=== PATIENT | female | born 1930 | race Caucasian/White ===

== ENCOUNTER 2019-03-31 15:06 | Inpatient (IN) | payer OTHER ==
--- NOTE | 2019-03-31 15:40 | PDOC ---
History of Present Illness - General Stated Complaint: ATRIAL FIBRILLATION Time Seen by Provider: 03/31/19 15:36 History Source: [facility] Records Exam Limitations: Dementia - History of Present Illness Initial Comments: 03/31/19 15:58 88y F with PMH of Afib (Eliquis, diltiazem), HF, Dementia, UGIB presenting to ER from [facility] for Afib RvR. Per staff, pt has been having trouble with rate control since early this week. Pt was taking metoprolol 100mg (1.5 tablet BID) but was switched to diltiazem 30mg yesterday. She was supposed to go on 30mg BID but she has not gotten the script yet. She was given a stat dose of metoprolol 50mg po today prior to arrival when her HR was in the 130s. Unable to obtain information from patient. Full Code PMD: Laith PMH: see hpi PSH: colostomy Meds: cardizem, digoxin, apixaban Allergies: PCN Past History - Past Medical History Allergies/Adverse Reactions: Allergies Allergy/AdvReac Type Severity Reaction Status Date / Time Penicillins Allergy Verified 09/26/13 12:15 Home Medications: Ambulatory Orders Acetaminophen [Tylenol] 650 mg PO Q6H PRN 09/26/13 Docusate Sodium [Colace -] 100 mg PO BID 09/26/13 Amlodipine Besylate 1 tab PO DAILY 03/31/19 Apixaban [Eliquis] 2.5 mg PO BID 03/31/19 Metoprolol Tartrate 1.5 tab PO DAILY 03/31/19 Pantoprazole Sodium 40 mg PO DAILY 03/31/19 Polyethylene Glycol 3350 [Miralax 119 gm Btl -] 17 ml PO DAILY PRN 03/31/19 Ropinirole HCl 1 tab PO Q8H 03/31/19 Dementia: Yes GI Disorders: Yes (DIVERTICULITIS) HTN: Yes - Surgical History Abdominal Surgery: Yes (COLECTOMY) - Psycho Social/Smoking Cessation Hx Smoking History: Never smoked Review of Systems - Review of Systems Able to Perform ROS?: No (dementia) *Physical Exam - Physical Exam General Appearance: Yes: Nourished, Appropriately Dressed HEENT: positive: EOMI, RASHARD, Other (dry membranes. ) Neck: positive: Trachea midline, Supple. negative: Lymphadenopathy (R), Lymphadenopathy (L) Respiratory/Chest: positive: Decreased Breath Sounds. negative: Chest Tender, Accessory Muscle Use, Labored Respiration Cardiovascular: positive: S1, S2, Irregularly Irregular. negative: Edema, JVD, Murmur Vascular Pulses: Dorsalis-Pedis (R): 2+, Doralis-Pedis (L): 2+ Gastrointestinal/Abdominal: positive: Normal Bowel Sounds, Soft, Other ( colostomy). negative: Tender Extremity: positive: Normal Capillary Refill, Pelvis Stable. negative: Swelling , Calf Tenderness Integumentary: positive: Normal Color, Dry, Warm Neurologic: positive: Alert, Normal Response, Motor Strength 5/5, Other. negative: Fully Oriented (aox1) ED Treatment Course - LABORATORY CBC & Chemistry Diagram: 03/31/19 16:16 03/31/19 16:16 Medical Decision Making - Medical Decision Making 03/31/19 17:58 88y F with PMH of afib, heart failure presenting to ED with afib rvr. rectal 99, tachycardic, saturating well on RA. afib rvr-could be due to infectoin, dehydration, medication noncompliance. -cbc, cmp, trop, cxr, ekg, ua, ucx. -cardizem 15mg after cardizem, hr down to 90s but went back up to 110s-120s. labs show leukocytosis 15. all other labs wnl. ua negative for infection but cloudy. upon chart review, pt was being treated with rocephin [facility] for leukocytosis 23. per inpatient team, pt does not require abx (Was going to get rocephin). recommended digoxin 0.125 ivpush. admitted to tele. Discharge - Discharge Information Problems reviewed: Yes Clinical Impression/Diagnosis: Atrial fibrillation with RVR Leukocytosis Qualifiers: Leukocytosis type: unspecified Qualified Code(s): D72.829 - Elevated white blood cell count, unspecified Condition: Stable - Admission Yes - Follow up/Referral - Patient Discharge Instructions - Post Discharge Activity
[2019-03-31] MEDS ORDERED: dilTIAZem HCL 50 MG/10 ML - 10 ML VIAL IVPUSH ONE (16:55)
--- NOTE | 2019-03-31 16:58 | PDOC ---
Documentation entered by Venus Moncada SCRIBE, acting as scribe for Miri Rodriguez MD. Miri Rodriguez MD: This documentation has been prepared by the Antwan manzanares Adrianna, SCRIBE, under my direction and personally reviewed by me in its entirety. I confirm that the documentation accurately reflects all work, treatment, procedures, and medical decision making performed by me. Attending Attestation - Resident Resident Name: Alice Moctezuma - ED Attending Attestation I have performed the following: I have examined & evaluated the patient, The case was reviewed & discussed with the resident, I agree w/resident's findings & plan, Exceptions are as noted - HPI HPI: 03/31/19 16:55 h/o afib, dementia, CHF from [facility] for elevated heart rate . they were recently metoprolol planning to transition to cardizem, they didn't have the meds today, noted the heart rate was 120 - 140's/ received 50 po cardizem today. no f/c pt is very poor historian. pt history provided by EMS report and nursing facility. pt currently denies any discomfort or pain. - Physicial Exam PE: 03/31/19 16:56 awake alert lungs clear bilat heart irreg tachycardia. abd soft nt nd ext wwp. no edema. no calf tenderness. skin warm and dry. - Medical Decision Making 03/31/19 16:57 88 yo F h/o afib CHF dementia here with afib with RVR differential: uti, electrolyte abnormality, dehydration, inefction such and pna. plan cxr ua labs ekg . will given diltiazem 15 mg ivp for afib with rVR/ 03/31/19 18:41 7 wbc in urine and cloudy. will cover for uti, elevated WBC .
[2019-03-31 17:11] LABS: BASO % 1.1 % (0-2.0); EOS % 1.4 % (0-4.5); HEMATOCRIT 42.6 % (32.4-45.2); HEMOGLOBIN 14.5 GM/dL (10.7-15.3); LYMPH % 17.1 % (8-40); MCHC 33.9 g/dl (32.0-36.0); MEAN CELL VOLUME 91.4 fl (80-96); MEAN PLT VOLUME 9.8 fl (7.5-11.1); MONO % 6.9 % (3.8-10.2); NEUT % 73.5 % (42.8-82.8); PLATELET COUNT 344 K/MM3 (134-434); RBC 4.66 M/mm3 (3.60-5.2)
[2019-03-31 17:22] LABS: INR 1.18 (0.83-1.09); PROTHROMBIN TIME (PATIENT) 13.9 SEC (9.7-13.0)
[2019-03-31 17:41] LABS: EPI CELLS 9.8 /HPF (0-5/HPF); HYALINE CASTS 23 /lpf (0-8); PH,URINE 5.5 (5.0-8.0); URINE APPEARANCE CLOUDY; URINE BACTERIA 8.2 /hpf (NEGATIVE); URINE BILIRUBIN NEGATIVE (NEGATIVE); URINE COLOR YELLOW; URINE GLUCOSE (UA) NEGATIVE (NEGATIVE); URINE KETONE NEGATIVE (NEGATIVE); URINE LEUK ESTERASE NEGATIVE (NEGATIVE); URINE NITRITE NEGATIVE (NEGATIVE); URINE PROTEIN 2+ (NEGATIVE); URINE RBC 3 /hpf (0-4); URINE UROBILINOGEN 0.2 mg/dL (0.2-1.0); URINE WBC 7 /hpf (0-5)
[2019-03-31 17:47] LABS: ALBUMIN 3.4 g/dl (3.4-5.0); BILIRUBIN,TOTAL 0.4 mg/dL (0.2-1); BLOOD UREA NITROGEN 33.7 mg/dL (7-18); CALCIUM 9.5 mg/dL (8.5-10.1); CREATININE 0.8 mg/dL (0.55-1.3); POTASSIUM 5.3 mmol/L (3.5-5.1); TOT PROT 7.8 g/dl (6.4-8.2)
[2019-03-31] MEDS ORDERED: dilTIAZem HCL 125 MG/25 ML - 25 ML VIAL ONE (17:58)
[2019-03-31 17:59] LABS: MAGNESIUM 2.5 mg/dL (1.8-2.4)
[2019-03-31] MEDS ORDERED: SODIUM CHLORIDE 500 ML IV STA (18:42)
[2019-03-31] MEDS ORDERED: DIGOXIN 0.5 MG/2 ML AMPUL IVPUSH ONE (18:57)
[2019-03-31] MEDS ORDERED: DIGOXIN 0.5 MG/2 ML AMPUL ONE (19:03)
[2019-03-31] MEDS ORDERED: METOPROLOL TARTRATE 5 MG/5 ML VIAL IVPUSH PRN ×2 (19:15→21:00)
[2019-03-31] MEDS ORDERED: ACETAMINOPHEN 325 MG TABLET (FP) PO PRN (19:34)
[2019-03-31] MEDS ORDERED: POLYETHYLENE GLYCOL 3350 119 GM BTL PO PRN (19:34)
--- NOTE | 2019-03-31 19:45 | PN ---
Teaching Attending Note Name of Resident: Belen Bird ATTENDING PHYSICIAN STATEMENT I saw and evaluated the patient. I reviewed the resident's note and discussed the case with the resident. I agree with the resident's findings and plan as documented. Seen and examined; please see resident note for further historical information. I personally verified all gan historical information and exam findings. Personally interpreted all imaging and diagnostics and reviewed appropriate consults. I reviewed all labs and vital signs as per resident note and EMR as documented. I agree with the above assessment and plan unless supplemented by myself in the following. Patient is an 88-year-old female [facility]. History is limited due to the fact that she is demented. She presents with atrial fibrillation with RVR after being on antibiotics for several days for leukocytosis with no clear documentation, [facility] records show that her white count was up to 21. She has no clear source of infection at this juncture. Her white count was noted to be downtrending today, furthermore the patient is noted to be persistently tachycardic to the 120s. Rhythm strip is appreciated from the [facility] which endorses the indicated diagnosis. The patient is stable in terms of the blood pressure. They are found to have a low digoxin level. The patient was apparently recently transitioned by their primary doctor at the [facility] from metoprolol to diltiazem, I am told they did not receive their initial dose of diltiazem. They have cardiomegaly evident on their chest x-ray with potential bilateral changes consistent with potential rate related CHF versus pneumonia. Imaging is pending to further delineate if there is a source of infection and to describe if this is effusion versus infiltrate. Pending discussion of code status and old records for complete PMH. 10 item review of systems couldn't be completed due to clicical status VS, labs, imaging reviewed NAD, AAO, resting comfortably in bed. RRR s1/2 no mgr Normal muscle tone, moves all 5 extremities with normal apparent strength Neck is supple, trachea midline, no patti LN Lungs CTAB with sym expansion NT ND +BS no patti organomegaly CN2-12 wnl; no FND NC AT EOMI PERRLA Normal mood, appropriate behavior, euthymic affect No skin breakdown or rashes noted Assessment and plan: Loading with dig, consulting ID and cardiology, continue empiric ceftriaxone. Will resume metoprolol (old dose 100 BID) if the dig somewhat helps. If both big and BB don't resolve anticipating may need dilt vs. amio-need to check overall LVEF given cardiomegaly and may want to avoid negative inotropic effect with contractility due to the dilt. Verifying Code Status
[2019-03-31] MEDS ORDERED: METOPROLOL TARTRATE 5 MG/5 ML VIAL ONE (20:23)
[2019-03-31] MEDS: DOCUSATE SODIUM 100 MG CAPSULE (FP) PO SCH (21:45)
[2019-03-31] MEDS: APIXABAN 2.5 MG TABLET PO SCH (21:45)
[2019-03-31] MEDS ORDERED: APIXABAN 2.5 MG TABLET ONE (21:48)
[2019-03-31] MEDS ORDERED: DOCUSATE SODIUM 100 MG CAPSULE (FP) PO ONE (21:49)
[2019-03-31] MEDS ORDERED: METOPROLOL TARTRATE 50 MG TABLET (FP) ONE (21:49)
[2019-03-31] MEDS: rOPINIRole HCL 1 MG TABLET (FP) PO SCH (21:51)
[2019-03-31] MEDS ORDERED: METOPROLOL TARTRATE 50 MG TABLET (FP) PO ONE (22:00)
--- NOTE | 2019-03-31 22:01 | HP ---
CHIEF COMPLAINT:weakness PCP:Dr. Ozuna HISTORY OF PRESENT ILLNESS: Patient is an 88 year old female with past medical history of Afib, CHF, dementia, Parkinson's disease and UGIB, was brought in from [facility] due to elevated heart rate. Patient has history of dementia and is unable to verbalize. History as per ED staff and patient's chart. Patient reportedly was taking Metoprolol tartrate 150mg BID for Afib, but was recently switched to Diltiazem 30mg yesterday. However, patient has not received the prescription yet. Today she was noted to be on Afib with RVR with HR at the 130s. Patient was given Metroprolol 50mg PO once and was sent to the ED. Of note, patient was also started on Ceftriaxone yesterday 03/30, for leukocytosis of 21. No obvious source of infection noted at this time. No fevers or chills. ER course was notable for: (1)IV Diltiazem 15mg once (2)Digoxin <0.3, IV Digoxin 0.125 given (3) Recent Travel:denies PAST MEDICAL HISTORY: Afib CHF dementia Parkinson's disease UGIB PAST SURGICAL HISTORY: Social History: Smoking:denies Alcohol:denies Drugs: denies Allergies Penicillins Allergy (Verified 09/26/13 12:15) HOME MEDICATIONS: Home Medications Medication Instructions Recorded Acetaminophen [Tylenol] 650 mg PO Q6H PRN 09/26/13 Docusate Sodium [Colace -] 100 mg PO BID 09/26/13 Amlodipine Besylate 1 tab PO DAILY 03/31/19 Apixaban [Eliquis] 2.5 mg PO BID 03/31/19 Metoprolol Tartrate 1.5 tab PO DAILY 03/31/19 Pantoprazole Sodium 40 mg PO DAILY 03/31/19 Polyethylene Glycol 3350 [Miralax 17 ml PO DAILY PRN 03/31/19 119 gm Btl -] Ropinirole HCl 1 tab PO Q8H 03/31/19 REVIEW OF SYSTEMS CONSTITUTIONAL: Absent: fever, chills, diaphoresis, generalized weakness, malaise, loss of appetite, weight change HEENT: Absent: rhinorrhea, nasal congestion, throat pain, throat swelling, difficulty swallowing, mouth swelling, ear pain, eye pain, visual changes CARDIOVASCULAR: Absent: chest pain, syncope, palpitations, irregular heart rate, lightheadedness , peripheral edema RESPIRATORY: Absent: cough, shortness of breath, dyspnea with exertion, orthopnea, wheezing, stridor, hemoptysis GASTROINTESTINAL: Absent: abdominal pain, abdominal distension, nausea, vomiting, diarrhea, constipation, melena, hematochezia GENITOURINARY: Absent: dysuria, frequency, urgency, hesitancy, hematuria, flank pain, genital pain MUSCULOSKELETAL: Absent: myalgia, arthralgia, joint swelling, back pain, neck pain SKIN: Absent: rash, itching, pallor HEMATOLOGIC/IMMUNOLOGIC: Absent: easy bleeding, easy bruising, lymphadenopathy, frequent infections ENDOCRINE: Absent: unexplained weight gain, unexplained weight loss, heat intolerance, cold intolerance NEUROLOGIC: Absent: headache, focal weakness or paresthesias, dizziness, unsteady gait, seizure, mental status changes, bladder or bowel incontinence PSYCHIATRIC: Absent: anxiety, depression, suicidal or homicidal ideation, hallucinations. PHYSICAL EXAMINATION Vital Signs - 24 hr 03/31/19 03/31/19 03/31/19 15:10 17:50 18:00 Temperature 98 F Pulse Rate 123 H Pulse Rate [ 122 H 122 H Apical] Respiratory 20 20 20 Rate Blood Pressure 128/91 Blood Pressure 133/106 H 133/66 [Left Arm] O2 Sat by Pulse 100 100 100 Oximetry (%) 03/31/19 03/31/19 03/31/19 20:31 20:38 21:44 Temperature 98.0 F Pulse Rate Pulse Rate [ 125 H 124 H Apical] Respiratory 20 Rate Blood Pressure 126/96 Blood Pressure 128/86 [Left Arm] O2 Sat by Pulse 100 Oximetry (%) GENERAL: Awake, alert, and nonverbal, in no acute distress. HEAD: Normal with no signs of trauma. EYES: PERRLA, EOMI, sclera anicteric, conjunctiva clear. EARS, NOSE, THROAT: Dry mucous membranes. NECK: Normal range of motion, supple. LUNGS: Breath sounds equal, clear to auscultation bilaterally. HEART: Irregularly irregular, normal S1 and S2 without murmur, rub or gallop. ABDOMEN: Soft, nontender, not distended, normoactive bowel sounds. MUSCULOSKELETAL: Normal range of motion at all joints.No CVA tenderness. LOWER EXTREMITIES: 2+ pulses, warm, well-perfused.No peripheral edema. SKIN: Warm, dry, normal turgor. Laboratory Results - last 24 hr 03/31/19 03/31/19 03/31/19 16:16 16:16 16:16 WBC 15.0 H RBC 4.66 Hgb 14.5 Hct 42.6 D MCV 91.4 MCH 31.0 MCHC 33.9 RDW 16.0 H Plt Count 344 MPV 9.8 Absolute Neuts (auto) 11.0 H Neutrophils % 73.5 Lymphocytes % 17.1 D Monocytes % 6.9 Eosinophils % 1.4 D Basophils % 1.1 Nucleated RBC % 0 PT with INR INR Sodium 139 Potassium 5.3 H Chloride 106 Carbon Dioxide 26 Anion Gap 7 L BUN 33.7 H Creatinine 0.8 Est GFR (CKD-EPI)AfAm 77.37 Est GFR (CKD-EPI)NonAf 66.76 Random Glucose 91 Lactic Acid Calcium 9.5 Magnesium 2.5 H Total Bilirubin 0.4 AST 27 ALT 27 Alkaline Phosphatase 121 H Troponin I < 0.02 Total Protein 7.8 Albumin 3.4 Urine Color Urine Appearance Urine pH Ur Specific [place] Urine Protein Urine Glucose (UA) Urine Ketones Urine Blood Urine Nitrite Urine Bilirubin Urine Urobilinogen Ur Leukocyte Esterase Urine WBC (Auto) Urine RBC (Auto) Urine Casts (Auto) U Pathogenic Cast Auto U Epithel Cells (Auto) Urine Bacteria (Auto) Digoxin 03/31/19 03/31/19 03/31/19 16:16 16:16 17:17 WBC RBC Hgb Hct MCV MCH MCHC RDW Plt Count MPV Absolute Neuts (auto) Neutrophils % Lymphocytes % Monocytes % Eosinophils % Basophils % Nucleated RBC % PT with INR 13.90 H INR 1.18 H Sodium Potassium Chloride Carbon Dioxide Anion Gap BUN Creatinine Est GFR (CKD-EPI)AfAm Est GFR (CKD-EPI)NonAf Random Glucose Lactic Acid Calcium Magnesium Total Bilirubin AST ALT Alkaline Phosphatase Troponin I Total Protein Albumin Urine Color Yellow Urine Appearance Cloudy Urine pH 5.5 Ur Specific [place] 1.025 Urine Protein 2+ H Urine Glucose (UA) Negative Urine Ketones Negative Urine Blood Negative Urine Nitrite Negative Urine Bilirubin Negative Urine Urobilinogen 0.2 Ur Leukocyte Esterase Negative Urine WBC (Auto) 7 Urine RBC (Auto) 3 Urine Casts (Auto) 23 U Pathogenic Cast Auto None seen U Epithel Cells (Auto) 9.8 Urine Bacteria (Auto) 8.2 Digoxin < 0.3 L 03/31/19 18:35 WBC RBC Hgb Hct MCV MCH MCHC RDW Plt Count MPV Absolute Neuts (auto) Neutrophils % Lymphocytes % Monocytes % Eosinophils % Basophils % Nucleated RBC % PT with INR INR Sodium Potassium Chloride Carbon Dioxide Anion Gap BUN Creatinine Est GFR (CKD-EPI)AfAm Est GFR (CKD-EPI)NonAf Random Glucose Lactic Acid 2.9 H* Calcium Magnesium Total Bilirubin AST ALT Alkaline Phosphatase Troponin I Total Protein Albumin Urine Color Urine Appearance Urine pH Ur Specific [place] Urine Protein Urine Glucose (UA) Urine Ketones Urine Blood Urine Nitrite Urine Bilirubin Urine Urobilinogen Ur Leukocyte Esterase Urine WBC (Auto) Urine RBC (Auto) Urine Casts (Auto) U Pathogenic Cast Auto U Epithel Cells (Auto) Urine Bacteria (Auto) Digoxin ASSESSMENT/PLAN: Patient is an 88 year old female with past medical history of Afib, CHF, dementia, Parkinson's disease and UGIB, was brought in from [facility] due to elevated heart rate. #Afib with RVR -IV Cardizem once and IV digoxin given at the ED -Will give IV lopressor PRN for tachycardia -Continue home Metoprolol for now -continue Eliquis 2.5mg bid -Tele monitoring -Cardiology consulted. #Leukocytosis -improved WBC from [place] record of 21 to 15 today. -Received ceftriaxone x2 doses -will continue IV ceftriaxone for now -UA, CXR unremarkable -will order chest and abdomen CT for further evaluation and r/o infection #HTN -Continue Amlodipine and Metoprolol #Parkinson's dementia -Continue home Roprinirol TID #FEN -Not on any standing fluids -Electrolytes wnl, routine bmp monitoring -Soft diet, sodium restricted #Prophylaxis -On eliquis 2.5mg BID #Disposition -full code -admit to tele Visit type - Emergency Visit Emergency Visit: Yes ED Registration Date: 03/31/19 Care time: The patient presented to the Emergency Department on the above date and was hospitalized for further evaluation of their emergent condition. - New Patient This patient is new to me today: Yes Date on this admission: 03/31/19 - Critical Care Critical Care patient: No ATTENDING PHYSICIAN STATEMENT I saw and evaluated the patient. I reviewed the resident's note and discussed the case with the resident. I agree with the resident's findings and plan as documented. SUBJECTIVE: OBJECTIVE: ASSESSMENT AND PLAN:
[2019-03-31 23:12] VITALS: BMI 24.1
[2019-04-01] MEDS ORDERED: DEXTROSE 5%-WATER - 50 ML IVPB ONE ×3 (01:21→11:06)
[2019-04-01] MEDS ORDERED: cefTRIAXone SODIUM 1 GM VIAL ONE ×3 (01:21→11:06)
[2019-04-01] MEDS: CEFTRIAXONE 1 GM in DEXTROSE 5%-WATER - 50 ML IVPB SCH ×2 (01:23→10:04)
[2019-04-01] MEDS: rOPINIRole HCL 1 MG TABLET (FP) PO SCH ×3 (06:26→22:28)
[2019-04-01 07:46] LABS: BASO % 1.1 % (0-2.0); EOS % 1.4 % (0-4.5); HEMATOCRIT 42.6 % (32.4-45.2); HEMOGLOBIN 13.8 GM/dL (10.7-15.3); LYMPH % 16.4 % (8-40); MCH 29.8 pg (25.7-33.7); MCHC 32.3 g/dl (32.0-36.0); MEAN PLT VOLUME 9.8 fl (7.5-11.1); MONO % 6.6 % (3.8-10.2); NEUT % 74.5 % (42.8-82.8); PLATELET COUNT 289 K/MM3 (134-434); RBC 4.63 M/mm3 (3.60-5.2); WHITE BLOOD COUNT 11.9 K/mm3 (4.0-10.0)
[2019-04-01 08:31] LABS: ALBUMIN 3.3 g/dl (3.4-5.0); BILIRUBIN,TOTAL 0.8 mg/dL (0.2-1); BLOOD UREA NITROGEN 27.5 mg/dL (7-18); CALCIUM 9.2 mg/dL (8.5-10.1); CREATININE 0.7 mg/dL (0.55-1.3); MAGNESIUM 2.4 mg/dL (1.8-2.4); PHOSPHOROUS 3.6 mg/dL (2.5-4.9); POTASSIUM 4.5 mmol/L (3.5-5.1); TOT PROT 7.1 g/dl (6.4-8.2)
[2019-04-01] MEDS: PANTOPRAZOLE 40 MG TABLET PO SCH (10:05)
[2019-04-01] MEDS: APIXABAN 2.5 MG TABLET PO SCH ×2 (10:05→22:28)
[2019-04-01] MEDS: amLODIPine BESYLATE 10 MG TABLET (FP) PO SCH (10:05)
[2019-04-01] MEDS: DOCUSATE SODIUM 100 MG CAPSULE (FP) PO SCH ×4 (10:05→22:27)
--- NOTE | 2019-04-01 10:13 | PN ---
Progress Note, Physician Chief Complaint: PATIENT WAS SENT BY ME YESTERDAY FROM [facility] FOR RAPID AVR AFIB FAILED ON METOPROLOL AND CARDIZEM PO AT [facility]. HISTORY OF DEMENTIA - Current Medication List Current Medications: Active Medications Acetaminophen (Tylenol -) 650 mg PO Q6H PRN PRN Reason: PAIN Amlodipine Besylate (Norvasc -) 10 mg PO DAILY [facility] Last Admin: 04/01/19 10:05 Dose: 10 mg Apixaban (Eliquis -) 2.5 mg PO BID [facility] Last Admin: 04/01/19 10:05 Dose: 2.5 mg Docusate Sodium (Colace -) 100 mg PO BID [facility] Last Admin: 04/01/19 10:05 Dose: 100 mg Ceftriaxone Sodium 1 gm/ (Dextrose) 50 mls @ 100 mls/hr IVPB DAILY [facility] Last Admin: 04/01/19 10:04 Dose: 100 mls/hr Metoprolol Tartrate (Lopressor Injection -) 2.5 mg IVPUSH Q4H PRN PRN Reason: TACHYCARDIA Last Admin: 03/31/19 20:31 Dose: 2.5 mg Pantoprazole Sodium (Protonix -) 40 mg PO DAILY [facility] Last Admin: 04/01/19 10:05 Dose: 40 mg Polyethylene Glycol (Miralax (For Daily Use) -) 17 gm PO DAILY PRN PRN Reason: CONSTIPATION Ropinirole HCl (Requip -) 1 mg PO TID [facility] Last Admin: 04/01/19 06:26 Dose: 1 mg - Objective Vital Signs: Vital Signs Temperature 98 F 04/01/19 08:30 Pulse Rate 100 H 04/01/19 08:30 Respiratory Rate 20 04/01/19 08:30 Blood Pressure 138/94 04/01/19 08:30 O2 Sat by Pulse Oximetry (%) 100 04/01/19 07:52 Constitutional: Yes: Mild Distress Cardiovascular: Yes: Tachycardia, Pulse Irregular Respiratory: Yes: Diminished Gastrointestinal: Yes: Soft Genitourinary: Yes: Incontinence Musculoskeletal: Yes: Muscle Weakness Edema: No Peripheral Pulses WNL: Yes Integumentary: Yes: Rash, Venous Stasis Changes Wound/Incision: Yes: Dressing Dry and Intact ...Motor Strength: LLE, RLE Psychiatric: Yes: Other Labs: CBC, BMP 04/01/19 06:40 04/01/19 06:40 INR, PTT INR 1.18 (0.83-1.09) H 03/31/19 16:16 Problem List - Problems (1) Atrial fibrillation with RVR Code(s): I48.91 - UNSPECIFIED ATRIAL FIBRILLATION (2) Leukocytosis Code(s): D72.829 - ELEVATED WHITE BLOOD CELL COUNT, UNSPECIFIED Qualifiers: Leukocytosis type: unspecified Qualified Code(s): D72.829 - Elevated white blood cell count, unspecified (3) Urinary tract infection Code(s): N39.0 - URINARY TRACT INFECTION, SITE NOT SPECIFIED Assessment/Plan ON METOPROLOL IV DIGOXIN WAS STARTED AT [facility] YESTERDAY FAILED ON CARDIZEM AND METOPROLOL CARDIOLOGY CONSULT DR KIRKLAND CALLED FOR COVERAGE [facility] ON TELEMETRY IV FLUIDS CHECK TSH/T4 CT CHEST SHOWS ENLARGED THYROID AND STABLE LUNG NODULE PULM EVAL
[2019-04-01 12:35] LABS: N-TERMINAL BNP 1684.6 pg/ml (5-450)
--- NOTE | 2019-04-01 13:08 | CON.CARD ---
Consult Consult Specialty:: cardiology Reason for Consultation:: afb RVR - History of Present Illness History of Present Illness: 88 year old female history of Afib, CHF, dementia, Parkinson's disease and UGIB , was brought in from [facility] due to rapid AF. Reprotedly "failed Metoprolol and cardiazem". Patient reportedly was taking Metoprolol tartrate 150mg BID for Afib, Also started on Ceftriaxone yesterday 03/30, for leukocytosis of 21. No obvious source of infection noted at this time. No fevers or chills. Unable to obtain history form patient due to dementia - Alcohol/Substance Use Hx Alcohol Use: No - Smoking History Smoking history: Never smoked Home Medications - Allergies Allergies/Adverse Reactions: Allergies Allergy/AdvReac Type Severity Reaction Status Date / Time Penicillins Allergy Verified 09/26/13 12:15 - Home Medications Home Medications: Ambulatory Orders Acetaminophen [Tylenol] 650 mg PO Q6H PRN 09/26/13 Docusate Sodium [Colace -] 100 mg PO BID 09/26/13 Amlodipine Besylate 1 tab PO DAILY 03/31/19 Apixaban [Eliquis] 2.5 mg PO BID 03/31/19 Metoprolol Tartrate 1.5 tab PO DAILY 03/31/19 Pantoprazole Sodium 40 mg PO DAILY 03/31/19 Polyethylene Glycol 3350 [Miralax 119 gm Btl -] 17 ml PO DAILY PRN 03/31/19 Ropinirole HCl 1 tab PO Q8H 03/31/19 Family Medical History Family History: Unable to Obtain Review of Systems Unable to obtain ROS, reason: dementia Vital Signs: Vital Signs Temperature 98 F 04/01/19 08:30 Pulse Rate 100 H 04/01/19 08:30 Respiratory Rate 20 04/01/19 08:30 Blood Pressure 138/94 04/01/19 08:30 O2 Sat by Pulse Oximetry (%) 100 04/01/19 07:52 Constitutional: Yes: Well Nourished, No Distress Eyes: Yes: Conjunctiva Clear HENT: Yes: Atraumatic, Normocephalic Neck: Yes: Supple, Trachea Midline Respiratory: Yes: Regular, CTA Bilaterally Gastrointestinal: Yes: Normal Bowel Sounds, Soft Cardiovascular: Yes: Tachycardia, Pulse Irregular JVD: No Carotid Bruit: No PMI: Non-Displaced Heart Sounds: Yes: S1, S2 Edema: No - Other Data Labs, Other Data: CBC, BMP 04/01/19 06:40 04/01/19 06:40 INR, PTT INR 1.18 (0.83-1.09) H 03/31/19 16:16 Troponin, BNP 03/31/19 04/01/19 16:16 00:03 Troponin I < 0.02 < 0.02 B-Natriuretic Peptide 1684.6 H Troponin, BNP 03/31/19 04/01/19 16:16 00:03 Troponin I < 0.02 < 0.02 B-Natriuretic Peptide 1684.6 H Problem List - Problems (1) Atrial fibrillation with RVR Code(s): I48.91 - UNSPECIFIED ATRIAL FIBRILLATION Assessment/Plan 88 F with chronic AF. admitted with tachycardia 1. AF Agree with Metoprolol and digoxin. Continue to titrate dose of metoprolol as HR dictates and may need to add CCB if still poorly controlled. On AC 2. Elevated BNP Likely due to tachycardia. CT chest without pulm edema. Can consider stopping lasix.
--- NOTE | 2019-04-01 14:00 | PN ---
Progress Note (short form) - Note Progress Note: PULMONARY CONSULTATION DICTATED 04/01/19 IMP AFIB WITH RVR DEMENTIA PARKINSONS H/O CHF H/O UGIB RLL NODULE STABLE LEUKOCYTOSIS ELEVATED LACTATE LEVEL PLAN RATE CONTROL PER CARDIOLOGY AC LOPRESSOR MONITOR LYTES,CBC CULTURES ? D/C ABX TREND LACTATE TELEMETRY MONITORING DR MERCADO Problem List - Problems (1) Pulmonary nodule Code(s): R91.1 - SOLITARY PULMONARY NODULE (2) Atrial fibrillation with RVR Code(s): I48.91 - UNSPECIFIED ATRIAL FIBRILLATION (3) Leukocytosis Code(s): D72.829 - ELEVATED WHITE BLOOD CELL COUNT, UNSPECIFIED Qualifiers: Leukocytosis type: unspecified Qualified Code(s): D72.829 - Elevated white blood cell count, unspecified (4) Parkinson disease Code(s): G20 - PARKINSON'S DISEASE (5) Dementia Code(s): F03.90 - UNSPECIFIED DEMENTIA WITHOUT BEHAVIORAL DISTURBANCE (6) Lactate blood increase Code(s): R79.89 - OTHER SPECIFIED ABNORMAL FINDINGS OF BLOOD CHEMISTRY
--- NOTE | 2019-04-01 14:44 | PN ---
Physical Exam: SUBJECTIVE: Patient seen and examined. Pending CV consult and echo. Pulm recs ntoed. HR improved. Restarting home 100 BID MT and 0.125 PO QD dig. 20 IV lasix QD for likely rate-related symptoms. Strict is and os and QD weights. Monitor Mg with diuresis and K. No new complaints but poor historian. Limited ROS 2/2 clinical condition OBJECTIVE: Vital Signs Period Temp Pulse Resp BP Sys/Herrera Pulse Ox Last 24 Hr 97 F-98.9 F 97-125 20-20 97-138/49-106 100-100 GENERAL: The patient is awake, alert, and fully oriented, in no acute distress. HEAD: Normal with no signs of trauma. EYES: PERRL, extraocular movements intact, sclera anicteric, conjunctiva clear. No ptosis. ENT: Ears normal, nares patent, oropharynx clear without exudates, moist mucous membranes. NECK: Trachea midline, full range of motion, supple. LUNGS: Breath sounds equal, clear to auscultation bilaterally, no wheezes, no crackles, no accessory muscle use. HEART: slightly tachy and irregular S1, S2 without murmur, rub or gallop. ABDOMEN: Soft, nontender, nondistended, normoactive bowel sounds, no guarding, no rebound, no hepatosplenomegaly, no masses. EXTREMITIES: 2+ pulses, warm, well-perfused, no edema. NEUROLOGICAL: Cranial nerves II through XII grossly intact. Normal speech, gait not observed. PSYCH: Normal mood, normal affect. SKIN: Warm, dry, normal turgor, no rashes or lesions noted Laboratory Results - last 24 hr 03/31/19 03/31/19 03/31/19 16:16 16:16 16:16 WBC 15.0 H RBC 4.66 Hgb 14.5 Hct 42.6 D MCV 91.4 MCH 31.0 MCHC 33.9 RDW 16.0 H Plt Count 344 MPV 9.8 Absolute Neuts (auto) 11.0 H Neutrophils % 73.5 Lymphocytes % 17.1 D Monocytes % 6.9 Eosinophils % 1.4 D Basophils % 1.1 Nucleated RBC % 0 PT with INR INR Sodium 139 Potassium 5.3 H Chloride 106 Carbon Dioxide 26 Anion Gap 7 L BUN 33.7 H Creatinine 0.8 Est GFR (CKD-EPI)AfAm 77.37 Est GFR (CKD-EPI)NonAf 66.76 Random Glucose 91 Lactic Acid Calcium 9.5 Phosphorus Magnesium 2.5 H Total Bilirubin 0.4 AST 27 ALT 27 Alkaline Phosphatase 121 H Troponin I < 0.02 B-Natriuretic Peptide Total Protein 7.8 Albumin 3.4 TSH Free T4 Urine Color Urine Appearance Urine pH Ur Specific [place] Urine Protein Urine Glucose (UA) Urine Ketones Urine Blood Urine Nitrite Urine Bilirubin Urine Urobilinogen Ur Leukocyte Esterase Urine WBC (Auto) Urine RBC (Auto) Urine Casts (Auto) U Pathogenic Cast Auto U Epithel Cells (Auto) Urine Bacteria (Auto) Digoxin 03/31/19 03/31/19 03/31/19 16:16 16:16 17:17 WBC RBC Hgb Hct MCV MCH MCHC RDW Plt Count MPV Absolute Neuts (auto) Neutrophils % Lymphocytes % Monocytes % Eosinophils % Basophils % Nucleated RBC % PT with INR 13.90 H INR 1.18 H Sodium Potassium Chloride Carbon Dioxide Anion Gap BUN Creatinine Est GFR (CKD-EPI)AfAm Est GFR (CKD-EPI)NonAf Random Glucose Lactic Acid Calcium Phosphorus Magnesium Total Bilirubin AST ALT Alkaline Phosphatase Troponin I B-Natriuretic Peptide Total Protein Albumin TSH Free T4 Urine Color Yellow Urine Appearance Cloudy Urine pH 5.5 Ur Specific [place] 1.025 Urine Protein 2+ H Urine Glucose (UA) Negative Urine Ketones Negative Urine Blood Negative Urine Nitrite Negative Urine Bilirubin Negative Urine Urobilinogen 0.2 Ur Leukocyte Esterase Negative Urine WBC (Auto) 7 Urine RBC (Auto) 3 Urine Casts (Auto) 23 U Pathogenic Cast Auto None seen U Epithel Cells (Auto) 9.8 Urine Bacteria (Auto) 8.2 Digoxin < 0.3 L 03/31/19 04/01/19 04/01/19 18:35 00:03 06:40 WBC 11.9 H RBC 4.63 Hgb 13.8 Hct 42.6 MCV 92.0 MCH 29.8 MCHC 32.3 RDW 16.0 H Plt Count 289 MPV 9.8 Absolute Neuts (auto) 8.9 H Neutrophils % 74.5 Lymphocytes % 16.4 Monocytes % 6.6 Eosinophils % 1.4 Basophils % 1.1 Nucleated RBC % 0 PT with INR INR Sodium Potassium Chloride Carbon Dioxide Anion Gap BUN Creatinine Est GFR (CKD-EPI)AfAm Est GFR (CKD-EPI)NonAf Random Glucose Lactic Acid 2.9 H* Calcium Phosphorus Magnesium Total Bilirubin AST ALT Alkaline Phosphatase Troponin I < 0.02 B-Natriuretic Peptide 1684.6 H Total Protein Albumin TSH Free T4 Urine Color Urine Appearance Urine pH Ur Specific [place] Urine Protein Urine Glucose (UA) Urine Ketones Urine Blood Urine Nitrite Urine Bilirubin Urine Urobilinogen Ur Leukocyte Esterase Urine WBC (Auto) Urine RBC (Auto) Urine Casts (Auto) U Pathogenic Cast Auto U Epithel Cells (Auto) Urine Bacteria (Auto) Digoxin 04/01/19 06:40 WBC RBC Hgb Hct MCV MCH MCHC RDW Plt Count MPV Absolute Neuts (auto) Neutrophils % Lymphocytes % Monocytes % Eosinophils % Basophils % Nucleated RBC % PT with INR INR Sodium 141 Potassium 4.5 Chloride 109 H Carbon Dioxide 25 Anion Gap 7 L BUN 27.5 H Creatinine 0.7 Est GFR (CKD-EPI)AfAm 90.93 Est GFR (CKD-EPI)NonAf 78.45 Random Glucose 113 H Lactic Acid Calcium 9.2 Phosphorus 3.6 Magnesium 2.4 Total Bilirubin 0.8 AST 21 ALT 23 Alkaline Phosphatase 111 Troponin I B-Natriuretic Peptide Total Protein 7.1 Albumin 3.3 L TSH 0.32 L Free T4 1.73 H Urine Color Urine Appearance Urine pH Ur Specific [place] Urine Protein Urine Glucose (UA) Urine Ketones Urine Blood Urine Nitrite Urine Bilirubin Urine Urobilinogen Ur Leukocyte Esterase Urine WBC (Auto) Urine RBC (Auto) Urine Casts (Auto) U Pathogenic Cast Auto U Epithel Cells (Auto) Urine Bacteria (Auto) Digoxin Active Medications Generic Name Dose Route Start Last Admin Trade Name Freq PRN Reason Stop Dose Admin Acetaminophen 650 mg 03/31/19 19:34 Tylenol - PO Q6H PRN PAIN Amlodipine Besylate 10 mg 04/01/19 10:00 04/01/19 10:05 Norvasc - PO 10 mg DAILY STEPHANIE Administration Apixaban 2.5 mg 03/31/19 22:00 04/01/19 10:05 Eliquis - PO 2.5 mg BID STEPHANIE Administration Digoxin 0.125 mg 04/01/19 14:45 Lanoxin - PO DAILY [facility] Docusate Sodium 100 mg 03/31/19 22:00 04/01/19 10:24 Colace - PO Not Given BID [facility] Furosemide 20 mg 04/01/19 14:45 Lasix Injection - IVPUSH DAILY [facility] Ceftriaxone Sodium 1 gm/ 50 mls @ 100 mls/hr 03/31/19 23:00 04/01/19 10:04 Dextrose IVPB 100 mls/hr DAILY STEPHANIE Administration Metoprolol Tartrate 100 mg 04/01/19 22:00 Lopressor - PO BID STEPHANIE Pantoprazole Sodium 40 mg 04/01/19 10:00 04/01/19 10:05 Protonix - PO 40 mg DAILY STEPHANIE Administration Polyethylene Glycol 17 gm 03/31/19 19:34 Miralax (For Daily Use) - PO DAILY PRN CONSTIPATION Ropinirole HCl 1 mg 03/31/19 22:00 04/01/19 14:12 Requip - PO 1 mg TID STEPHANIE Administration ASSESSMENT/PLAN: Presented with Afib with RVR; slightly improved. Continue PO Dig (level low, IV y) and 100 BID metoprolol. FU echo; would avoid dilt as unknown systolic function. Giving IV 20 lasix today for likely rate related CHF. Leukocytosis stable with no signs or worsening infection or fevers. Pancultured and negative. Problems include: -Afib with RVR, elevated CV2/HB, improved but still tachy. Restarting home meds , pending echo and CV consult. May be related to underlying hyperthyroid vs. low dig level. C/W eliquis -Hyperthyroid (T3 pending, FT4 elevated, defer antithyroid meds to endocrine and will continue BB-will d/w cv regarding cardioselectivity) -RLS, continue requip -GERD, continue protonix -Leukocytosis (was on empiric abx at [place], continued, neg. cx with no clear source of infection) -[facility] full code Visit type - Emergency Visit Emergency Visit: Yes ED Registration Date: 03/31/19 Care time: The patient presented to the Emergency Department on the above date and was hospitalized for further evaluation of their emergent condition. - New Patient This patient is new to me today: No - Critical Care Critical Care patient: No
[2019-04-01] MEDS: FUROSEMIDE 40 MG/4 ML INJECTABLE VIAL IVPUSH SCH (14:56)
[2019-04-01] MEDS: DIGOXIN 0.125 MG TABLET (FP) PO SCH (15:03)
--- NOTE | 2019-04-01 15:29 | CONS ---
PULMONARY CONSULTATION DATE OF CONSULTATION: 04/01/2019 REFERRING PHYSICIAN: Simeon Ozuna MD SOURCE: History was obtained from medical records. Patient is a poor historian , secondary to her advanced dementia and nonverbal. HISTORY OF PRESENT ILLNESS: Patient is an 88-year-old, female resident of [facility] with a past medical history of atrial fibrillation, CHF, dementia, Parkinson disease, history of upper GI bleed, who is a resident of [facility], transferred to [facility] secondary to elevated heart rate. Apparently, the patient was previously maintained on metoprolol 150 b.i.d. for atrial fibrillation and was recently switched to diltiazem 30 mg. Apparently, on day of admission, she was noted to be in atrial fibrillation with rapid ventricular response with a heart rate of 130. She was given 50 mg of metoprolol at [facility] and transferred to [facility] ER. She was also started on ceftriaxone, secondary to leukocytosis. There was no obvious source of infection. Apparently, she was placed on antibiotics at the [facility]. Patient was admitted. On admission, she was started on IV Lopressor. She was evaluated by Cardiology. She underwent a CT scan of the chest and CT of the abdomen, which revealed no acute infiltrates, which revealed a stable nodule in the right lower lobe which has been present since 2014. 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 PAST MEDICAL HISTORY: Again includes advanced dementia, Parkinson disease, atrial fibrillation, history of CHF, history of right lower lobe nodule stable, history of upper GI bleed, and leukocytosis. REVIEW OF SYSTEMS: Unable to obtain. CURRENT MEDICATIONS: Include Lopressor, ceftriaxone, Eliquis, Colace, MiraLAX, Norvasc, Requip, and Protonix. PHYSICAL EXAMINATION: General: Patient is an elderly female, awake, nonverbal, in no acute distress. Vital Signs: She is afebrile, blood pressure is 138/94, respiratory rate is 20 , O2 saturation is 100% on room air. HEENT: Exam is normocephalic, atraumatic. Neck: Supple. Heart: Irregular and tachycardic. Chest: Poor inspiratory effort. No wheezes or rhonchi. Abdomen: Soft. Bowel sounds are positive. Extremities: No cyanosis or edema. LABORATORIES: WBC is 11.9, hemoglobin 13.8, hematocrit 42.6, with a platelet count of 289,000, BUN is 27, creatinine 0.7, lactate is 2.9, BNP is 1684, TSH is 0.32. Chest CT, as noted earlier. IMPRESSION: 1. Atrial fibrillation with rapid ventricular response. 2. Dementia. 3. History of Parkinson's. 4. History of congestive heart failure. 5. History of upper gastrointestinal bleed. 6. Right lower lobe nodule; stable. 7. Elevated lactate level. 8. Leukocytosis. PLAN: Rate control, as per Cardiology. Continue Lopressor, anticoagulation. Monitor electrolytes, CBC. Cultures. Telemetry monitoring. Trend lactate. Consider discontinue antibiotics. RHIANNON MERCADO M.D. DERIAN/[id number] MTDD
[2019-04-01] MEDS: METOPROLOL TARTRATE 50 MG TABLET (FP) PO SCH (22:27)
[2019-04-02] MEDS ORDERED: PT OWN MED DRAWER 7, Y5N ONE ×2 (04:37→13:00)
[2019-04-02] MEDS: rOPINIRole HCL 1 MG TABLET (FP) PO SCH ×3 (07:16→22:00)
[2019-04-02 07:33] LABS: ALBUMIN 2.9 g/dl (3.4-5.0); BILIRUBIN,TOTAL 0.8 mg/dL (0.2-1); BLOOD UREA NITROGEN 23.4 mg/dL (7-18); CREATININE 0.7 mg/dL (0.55-1.3); MAGNESIUM 2.2 mg/dL (1.8-2.4); POTASSIUM 3.8 mmol/L (3.5-5.1); TOT PROT 6.8 g/dl (6.4-8.2)
[2019-04-02 08:00] LABS: BASO % 0.8 % (0-2.0); EOS % 2.7 % (0-4.5); HEMATOCRIT 41.3 % (32.4-45.2); HEMOGLOBIN 13.6 GM/dL (10.7-15.3); LYMPH % 21.4 % (8-40); MCH 30.4 pg (25.7-33.7); MCHC 32.8 g/dl (32.0-36.0); MEAN CELL VOLUME 92.7 fl (80-96); MEAN PLT VOLUME 9.8 fl (7.5-11.1); MONO % 8.3 % (3.8-10.2); NEUT % 66.8 % (42.8-82.8); PLATELET COUNT 284 K/MM3 (134-434); RBC 4.46 M/mm3 (3.60-5.2); RDW 15.8 % (11.6-15.6); WHITE BLOOD COUNT 10.5 K/mm3 (4.0-10.0)
[2019-04-02] MEDS ORDERED: cefTRIAXone SODIUM 1 GM VIAL ONE (09:21)
[2019-04-02] MEDS ORDERED: DEXTROSE 5%-WATER - 50 ML IVPB ONE (09:21)
--- NOTE | 2019-04-02 09:58 | EKG ---
Test Reason : Blood Pressure : / mmHG Vent. Rate : 123 BPM Atrial Rate : 150 BPM P-R Int : 000 ms QRS Dur : 064 ms QT Int : 280 ms P-R-T Axes : 000 -13 000 degrees QTc Int : 400 ms POOR DATA QUALITY, INTERPRETATION MAY BE ADVERSELY AFFECTED ATRIAL FIBRILLATION WITH RAPID VENTRICULAR RESPONSE INFERIOR INFARCT , AGE UNDETERMINED ABNORMAL ECG WHEN COMPARED WITH ECG OF 26-SEP-2013 12:27, ATRIAL FIBRILLATION HAS REPLACED SINUS RHYTHM VENT. RATE HAS INCREASED BY 68 BPM INFERIOR INFARCT IS NOW PRESENT Confirmed by NINO HERNANDEZ MD ([id number]) on 04/02/2019 9:58:02 AM Referred By: Confirmed By:NINO HERNANDEZ MD
[2019-04-02] MEDS ORDERED: DIGOXIN 0.5 MG/2 ML AMPUL IVPUSH ONE (10:01)
[2019-04-02] MEDS: CEFTRIAXONE 1 GM in DEXTROSE 5%-WATER - 50 ML IVPB SCH (10:13)
[2019-04-02] MEDS: METOPROLOL TARTRATE 50 MG TABLET (FP) PO SCH ×2 (10:14→22:20)
[2019-04-02] MEDS: DIGOXIN 0.125 MG TABLET (FP) PO SCH (10:14)
[2019-04-02] MEDS: PANTOPRAZOLE 40 MG TABLET PO SCH (10:14)
[2019-04-02] MEDS: DOCUSATE SODIUM 100 MG CAPSULE (FP) PO SCH ×2 (10:15→22:20)
[2019-04-02] MEDS: amLODIPine BESYLATE 10 MG TABLET (FP) PO SCH (10:15)
--- NOTE | 2019-04-02 10:16 | PN ---
Progress Note, Physician Chief Complaint: PATIENT DOING BETTER AWAKE ALERT X 2 EATING BREAKFAST - Current Medication List Current Medications: Active Medications Acetaminophen (Tylenol -) 650 mg PO Q6H PRN PRN Reason: PAIN Amlodipine Besylate (Norvasc -) 10 mg PO DAILY [facility] Last Admin: 04/01/19 10:05 Dose: 10 mg Apixaban (Eliquis -) 2.5 mg PO BID [facility] Last Admin: 04/01/19 22:28 Dose: 2.5 mg Digoxin (Lanoxin -) 0.125 mg PO DAILY [facility] Last Admin: 04/01/19 15:03 Dose: 0.125 mg Digoxin (Lanoxin Injection -) 0.5 mg IVPUSH ONCE ONE Stop: 04/02/19 10:02 Docusate Sodium (Colace -) 100 mg PO BID [facility] Last Admin: 04/01/19 22:00 Dose: Not Given Furosemide (Lasix Injection -) 20 mg IVPUSH DAILY [facility] Last Admin: 04/01/19 14:56 Dose: 20 mg Ceftriaxone Sodium 1 gm/ (Dextrose) 50 mls @ 100 mls/hr IVPB DAILY [facility] Last Admin: 04/01/19 10:04 Dose: 100 mls/hr Metoprolol Tartrate (Lopressor -) 100 mg PO BID [facility] Last Admin: 04/01/19 22:27 Dose: 100 mg Pantoprazole Sodium (Protonix -) 40 mg PO DAILY [facility] Last Admin: 04/01/19 10:05 Dose: 40 mg Polyethylene Glycol (Miralax (For Daily Use) -) 17 gm PO DAILY PRN PRN Reason: CONSTIPATION Ropinirole HCl (Requip -) 1 mg PO TID [facility] Last Admin: 04/02/19 07:16 Dose: 1 mg - Objective Vital Signs: Vital Signs Temperature 97 F L 04/02/19 08:29 Pulse Rate 100 H 04/02/19 08:29 Respiratory Rate 20 04/02/19 08:29 Blood Pressure 112/80 04/02/19 08:29 O2 Sat by Pulse Oximetry (%) 100 04/02/19 08:27 Constitutional: Yes: Mild Distress Cardiovascular: Yes: Tachycardia, Pulse Irregular Respiratory: Yes: Diminished Gastrointestinal: Yes: Soft, Abdomen, Obese Genitourinary: Yes: Incontinence Musculoskeletal: Yes: Muscle Weakness Edema: Yes Integumentary: Yes: Venous Stasis Changes Neurological: Yes: Pre-Existing Deficit ...Motor Strength: LLE, RLE Psychiatric: Yes: Other Labs: CBC, BMP 04/02/19 06:08 04/02/19 06:08 INR, PTT INR 1.18 (0.83-1.09) H 03/31/19 16:16 Problem List - Problems (1) Atrial fibrillation with RVR Code(s): I48.91 - UNSPECIFIED ATRIAL FIBRILLATION (2) Leukocytosis Code(s): D72.829 - ELEVATED WHITE BLOOD CELL COUNT, UNSPECIFIED Qualifiers: Leukocytosis type: unspecified Qualified Code(s): D72.829 - Elevated white blood cell count, unspecified (3) Urinary tract infection Code(s): N39.0 - URINARY TRACT INFECTION, SITE NOT SPECIFIED Assessment/Plan PATIENT NEVER COMPLETED LOADING DOSE OF DIGOXIN AT [facility] ADDED 0.5MG IV DOSE OF DIGOXIN NOW CONTINUE 0.125MG DAILY MONITOR TELE TODAY DC PLANNING TOMORROW
[2019-04-02] MEDS: FUROSEMIDE 40 MG/4 ML INJECTABLE VIAL IVPUSH SCH (10:17)
[2019-04-02] MEDS: APIXABAN 2.5 MG TABLET PO SCH ×2 (10:18→22:20)
--- NOTE | 2019-04-02 10:34 | PN ---
Progress Note, Physician History of Present Illness: PULMONARY AWAKE,COMFORTABLE,-RESP DISTRESS - Current Medication List Current Medications: Active Medications Acetaminophen (Tylenol -) 650 mg PO Q6H PRN PRN Reason: PAIN Amlodipine Besylate (Norvasc -) 10 mg PO DAILY [facility] Last Admin: 04/02/19 10:15 Dose: 10 mg Apixaban (Eliquis -) 2.5 mg PO BID [facility] Last Admin: 04/02/19 10:18 Dose: 2.5 mg Digoxin (Lanoxin -) 0.125 mg PO DAILY [facility] Last Admin: 04/02/19 10:14 Dose: 0.125 mg Docusate Sodium (Colace -) 100 mg PO BID [facility] Last Admin: 04/02/19 10:15 Dose: Not Given Furosemide (Lasix Injection -) 20 mg IVPUSH DAILY [facility] Last Admin: 04/02/19 10:17 Dose: 20 mg Ceftriaxone Sodium 1 gm/ (Dextrose) 50 mls @ 100 mls/hr IVPB DAILY [facility] Last Admin: 04/02/19 10:13 Dose: 100 mls/hr Metoprolol Tartrate (Lopressor -) 100 mg PO BID [facility] Last Admin: 04/02/19 10:14 Dose: 100 mg Pantoprazole Sodium (Protonix -) 40 mg PO DAILY [facility] Last Admin: 04/02/19 10:14 Dose: 40 mg Polyethylene Glycol (Miralax (For Daily Use) -) 17 gm PO DAILY PRN PRN Reason: CONSTIPATION Ropinirole HCl (Requip -) 1 mg PO TID [facility] Last Admin: 04/02/19 07:16 Dose: 1 mg - Objective Vital Signs: Vital Signs Temperature 97 F L 04/02/19 08:29 Pulse Rate 105 H 04/02/19 10:14 Respiratory Rate 04/02/19 08:29 Blood Pressure 112/80 04/02/19 08:29 O2 Sat by Pulse Oximetry (%) 100 04/02/19 08:27 Constitutional: Yes: Well Nourished, Calm Eyes: Yes: WNL HENT: Yes: WNL Neck: Yes: WNL Cardiovascular: Yes: Pulse Irregular, S1, S2 Respiratory: Yes: CTA Bilaterally Gastrointestinal: Yes: Normal Bowel Sounds, Soft Extremities: Yes: WNL Edema: No Labs: CBC, BMP 04/02/19 06:08 04/02/19 06:08 INR, PTT INR 1.18 (0.83-1.09) H 03/31/19 16:16 Problem List - Problems (1) Pulmonary nodule Code(s): R91.1 - SOLITARY PULMONARY NODULE (2) Atrial fibrillation with RVR Code(s): I48.91 - UNSPECIFIED ATRIAL FIBRILLATION (3) Leukocytosis Code(s): D72.829 - ELEVATED WHITE BLOOD CELL COUNT, UNSPECIFIED Qualifiers: Leukocytosis type: unspecified Qualified Code(s): D72.829 - Elevated white blood cell count, unspecified (4) Parkinson disease Code(s): G20 - PARKINSON'S DISEASE (5) Dementia Code(s): F03.90 - UNSPECIFIED DEMENTIA WITHOUT BEHAVIORAL DISTURBANCE (6) Lactate blood increase Code(s): R79.89 - OTHER SPECIFIED ABNORMAL FINDINGS OF BLOOD CHEMISTRY Assessment/Plan IMP AFIB WITH RVR DEMENTIA PARKINSONS H/O CHF H/O UGIB RLL NODULE STABLE LEUKOCYTOSIS ELEVATED LACTATE LEVEL PLAN RATE CONTROL PER CARDIOLOGY AC LOPRESSOR/DIG MONITOR LYTES,CBC TREND LACTATE DR MERCADO Problem List - Problems (1) Pulmonary nodule Code(s): R91.1 - SOLITARY PULMONARY NODULE (2) Atrial fibrillation with RVR Code(s): I48.91 - UNSPECIFIED ATRIAL FIBRILLATION (3) Leukocytosis Code(s): D72.829 - ELEVATED WHITE BLOOD CELL COUNT, UNSPECIFIED Qualifiers: Leukocytosis type: unspecified Qualified Code(s): D72.829 - Elevated white blood cell count, unspecified (4) Parkinson disease Code(s): G20 - PARKINSON'S DISEASE (5) Dementia Code(s): F03.90 - UNSPECIFIED DEMENTIA WITHOUT BEHAVIORAL DISTURBANCE (6) Lactate blood increase Code(s): R79.89 - OTHER SPECIFIED ABNORMAL FINDINGS OF BLOOD CHEMISTRY
--- NOTE | 2019-04-02 16:17 | PN ---
Progress Note, Physician Chief Complaint: Cardiology FU Alert. Telem AF HR 120-90 History of Present Illness: 88 year old female history of Afib, CHF, dementia, Parkinson's disease and UGIB , was brought in from [facility] due to rapid AF. Reprotedly "failed Metoprolol and cardiazem". Patient reportedly was taking Metoprolol tartrate 150mg BID for Afib, Also started on Ceftriaxone yesterday 03/30, for leukocytosis of 21. No obvious source of infection noted at this time. No fevers or chills. Unable to obtain history form patient due to dementia - Current Medication List Current Medications: Active Medications Acetaminophen (Tylenol -) 650 mg PO Q6H PRN PRN Reason: PAIN Amlodipine Besylate (Norvasc -) 10 mg PO DAILY [facility] Last Admin: 04/02/19 10:15 Dose: 10 mg Apixaban (Eliquis -) 2.5 mg PO BID [facility] Last Admin: 04/02/19 10:18 Dose: 2.5 mg Digoxin (Lanoxin -) 0.125 mg PO DAILY [facility] Last Admin: 04/02/19 10:14 Dose: 0.125 mg Docusate Sodium (Colace -) 100 mg PO BID [facility] Last Admin: 04/02/19 10:15 Dose: Not Given Furosemide (Lasix Injection -) 20 mg IVPUSH DAILY [facility] Last Admin: 04/02/19 10:17 Dose: 20 mg Metoprolol Tartrate (Lopressor -) 100 mg PO BID [facility] Last Admin: 04/02/19 10:14 Dose: 100 mg Pantoprazole Sodium (Protonix -) 40 mg PO DAILY [facility] Last Admin: 04/02/19 10:14 Dose: 40 mg Polyethylene Glycol (Miralax (For Daily Use) -) 17 gm PO DAILY PRN PRN Reason: CONSTIPATION Ropinirole HCl (Requip -) 1 mg PO TID [facility] Last Admin: 04/02/19 13:17 Dose: 1 mg - Objective Vital Signs: Vital Signs Temperature 97.6 F 04/02/19 14:00 Pulse Rate 91 H 04/02/19 13:15 Respiratory Rate 20 04/02/19 14:00 Blood Pressure 136/66 04/02/19 14:00 O2 Sat by Pulse Oximetry (%) 100 04/02/19 08:27 Constitutional: Yes: Well Nourished Eyes: Yes: Conjunctiva Clear HENT: Yes: Atraumatic, Normocephalic Neck: Yes: Supple, Trachea Midline Cardiovascular: Yes: Regular Rate and Rhythm. No: JVD Respiratory: Yes: Regular, CTA Bilaterally Gastrointestinal: Yes: Normal Bowel Sounds Edema: No Labs: CBC, BMP 04/02/19 06:08 04/02/19 06:08 INR, PTT INR 1.18 (0.83-1.09) H 03/31/19 16:16 Problem List - Problems (1) Atrial fibrillation with RVR Code(s): I48.91 - UNSPECIFIED ATRIAL FIBRILLATION Assessment/Plan 88 F with chronic AF. admitted with tachycardia 1. AF Continue metoprolol 100mgbid and digoxin. HR remains elevated occasionally. My need to switch CCB therapy. Will check in 24 hours. On AC 2. Elevated BNP Likely due to tachycardia. CT chest without pulm edema. Discontinue lasix.
--- NOTE | 2019-04-02 21:41 | CONSULT ---
Consult Consult Specialty:: endocrine Referred by:: dr.Alexander Malloy Reason for Consultation:: hyperthyroidism - History of Present Illness Chief Complaint: confused/dementia History of Present Illness: 88y female pmh afib,chf,htn,dementia,admitted with tachycardia,worsening mental state,unable to provide any complaints awake arousable found to have abnormal thyroid function testing - Alcohol/Substance Use Hx Alcohol Use: No - Smoking History Smoking history: Never smoked Home Medications - Allergies Allergies/Adverse Reactions: Allergies Allergy/AdvReac Type Severity Reaction Status Date / Time Penicillins Allergy Verified 09/26/13 12:15 - Home Medications Home Medications: Ambulatory Orders Acetaminophen [Tylenol] 650 mg PO Q6H PRN 09/26/13 Docusate Sodium [Colace -] 100 mg PO BID 09/26/13 Amlodipine Besylate 1 tab PO DAILY 03/31/19 Apixaban [Eliquis] 2.5 mg PO BID 03/31/19 Metoprolol Tartrate 1.5 tab PO DAILY 03/31/19 Pantoprazole Sodium 40 mg PO DAILY 03/31/19 Polyethylene Glycol 3350 [Miralax 119 gm Btl -] 17 ml PO DAILY PRN 03/31/19 Ropinirole HCl 1 tab PO Q8H 03/31/19 Review of Systems Unable to obtain ROS, reason: lethargy/dementia Physical Exam Vital Signs: Vital Signs Temperature 97.1 F L 04/02/19 18:00 Pulse Rate 79 04/02/19 18:00 Respiratory Rate 20 04/02/19 18:00 Blood Pressure 100/56 L 04/02/19 18:00 O2 Sat by Pulse Oximetry (%) 100 04/02/19 08:27 Constitutional: Yes: Anxious Eyes: Yes: EOM Intact, Ptosis Neck: Yes: Trachea Midline Cardiovascular: Yes: Tachycardia, Pulse Irregular Respiratory: Yes: CTA Bilaterally Gastrointestinal: Yes: Normal Bowel Sounds ...Rectal Exam: Yes: Deferred Renal/: Yes: WNL Musculoskeletal: Yes: Muscle Pain, Muscle Weakness Extremities: Yes: WNL Neurological: Yes: Alert, Confusion, Weakness Labs: CBC, BMP 04/02/19 06:08 04/02/19 06:08 Problem List - Problems (1) Hyperthyroidism Problems reviewed: Yes Code(s): E05.90 - THYROTOXICOSIS, UNSP WITHOUT THYROTOXIC CRISIS OR STORM (2) Hyperthyroidism Problems reviewed: Yes Code(s): E05.90 - THYROTOXICOSIS, UNSP WITHOUT THYROTOXIC CRISIS OR STORM (3) Atrial fibrillation with RVR Problems reviewed: Yes Code(s): I48.91 - UNSPECIFIED ATRIAL FIBRILLATION (4) Dementia Problems reviewed: Yes Code(s): F03.90 - UNSPECIFIED DEMENTIA WITHOUT BEHAVIORAL DISTURBANCE (5) Leukocytosis Code(s): D72.829 - ELEVATED WHITE BLOOD CELL COUNT, UNSPECIFIED Qualifiers: Leukocytosis type: unspecified Qualified Code(s): D72.829 - Elevated white blood cell count, unspecified (6) Pulmonary nodule Code(s): R91.1 - SOLITARY PULMONARY NODULE Assessment/Plan Current Active Problems Atrial fibrillation with RVR (Acute) Dementia (Acute) Hyperthyroidism (Acute) Lactate blood increase (Acute) Leukocytosis (Acute) Parkinson disease (Acute) Pulmonary nodule (Acute) Laboratory Results - last 24 hr 04/02/19 04/02/19 06:08 06:08 WBC 10.5 H RBC 4.46 Hgb 13.6 Hct 41.3 MCV 92.7 MCH 30.4 MCHC 32.8 RDW 15.8 H Plt Count 284 MPV 9.8 Absolute Neuts (auto) 7.0 Neutrophils % 66.8 Lymphocytes % 21.4 D Monocytes % 8.3 Eosinophils % 2.7 D Basophils % 0.8 Nucleated RBC % 0 Sodium 138 Potassium 3.8 Chloride 105 Carbon Dioxide 28 Anion Gap 6 L BUN 23.4 H Creatinine 0.7 Est GFR (CKD-EPI)AfAm 90.93 Est GFR (CKD-EPI)NonAf 78.45 Random Glucose 119 H Calcium 9.0 Magnesium 2.2 Total Bilirubin 0.8 AST 19 ALT 22 Alkaline Phosphatase 104 Total Protein 6.8 Albumin 2.9 L plan; tapazole 10mg daily follow normalization free t4 concur with beta blockers iv fluids
[2019-04-02] MEDS: METHIMAZOLE 10 MG TABLET (FP) PO SCH (22:20)
[2019-04-03] MEDS: rOPINIRole HCL 1 MG TABLET (FP) PO SCH (05:44)
[2019-04-03] MEDS: METHIMAZOLE 10 MG TABLET (FP) PO SCH (05:44)
[2019-04-03] MEDS ORDERED: DOCUSATE NA 100 MG/10 ML UNIT-DOSE CUPS PO SCH (06:00)
[2019-04-03 06:13] VITALS: TEMP 97.5
[2019-04-03 07:47] VITALS: BP 127/81
--- NOTE | 2019-04-03 08:26 | DS ---
Physical Examination Vital Signs: Vital Signs Temperature 97.5 F L 04/03/19 07:45 Pulse Rate 86 04/03/19 07:45 Respiratory Rate 20 04/03/19 07:47 Blood Pressure 127/81 04/03/19 07:45 O2 Sat by Pulse Oximetry (%) 100 04/03/19 07:47 Constitutional: Yes: No Distress Cardiovascular: Yes: Pulse Irregular Respiratory: Yes: WNL Gastrointestinal: Yes: Soft Renal/: Yes: Incontinence Musculoskeletal: Yes: Muscle Weakness Edema: Yes Edema: LLE: Trace, RLE: Trace Neurological: Yes: Pre-Existing Deficit Labs: CBC, BMP 04/02/19 06:08 04/02/19 06:08 Discharge Summary Problems reviewed: Yes Reason For Visit: UTI Current Active Problems Atrial fibrillation with RVR (Acute) Dementia (Acute) Hyperthyroidism (Acute) Hyperthyroidism (Acute) Lactate blood increase (Acute) Leukocytosis (Acute) Parkinson disease (Acute) Pulmonary nodule (Acute) Procedures: Principal: LABS/TELEMETRY MONITORING Hospital Course: AMITTED UNCONTROLLED TAHYCARDIA AFIB RVR STARTED ON IV DIGOXIN AND MONITORED WITH CARDIAC WORKUP NOW CONTROLLED AFIB ON AC Plan of Treatment: DIGOXIN DAILY MONITOR DIGOXIN LEVELS AND THYROID FUNCTION Condition: Stable - Instructions Diet, Activity, Other Instructions: CHECK DIGOXIN LEVEL IN 1 WEEK ALONG WITH THYROID PANEL ON TAPAZOLE WILL NEED THYROID CHECK AT LEAST EVERY MONTH Referrals: Phil Guzman [Primary Care Provider] - Disposition: [facility] - Home Medications Comprehensive Discharge Medication List: Ambulatory Orders Acetaminophen [Tylenol] 650 mg PO Q6H PRN 09/26/13 Docusate Sodium [Colace -] 100 mg PO BID 09/26/13 Amlodipine Besylate 1 tab PO DAILY 03/31/19 Apixaban [Eliquis] 2.5 mg PO BID 03/31/19 Metoprolol Tartrate 1.5 tab PO DAILY 03/31/19 Pantoprazole Sodium 40 mg PO DAILY 03/31/19 Polyethylene Glycol 3350 [Miralax 119 gm Btl -] 17 ml PO DAILY PRN 03/31/19 Ropinirole HCl 1 tab PO Q8H 03/31/19 Digoxin [Lanoxin -] 0.125 mg PO DAILY tablet 04/03/19 Docusate Liquid [Colace Liquid -] 100 mg PO TID ud 04/03/19 Furosemide [Lasix -] 20 mg PO DAILY #30 tablet 04/03/19 Methimazole [Tapazole -] 10 mg PO Q8H tablet 04/03/19 Metoprolol Tartrate [Lopressor -] 100 mg PO BID tablet 04/03/19
[2019-04-03] MEDS: DIGOXIN 0.125 MG TABLET (FP) PO SCH (09:51)
[2019-04-03] MEDS: FUROSEMIDE 40 MG/4 ML INJECTABLE VIAL IVPUSH SCH (09:51)
[2019-04-03] MEDS: DOCUSATE SODIUM 100 MG CAPSULE (FP) PO SCH (09:52)
[2019-04-03] MEDS: amLODIPine BESYLATE 10 MG TABLET (FP) PO SCH (09:52)
[2019-04-03] MEDS: METOPROLOL TARTRATE 50 MG TABLET (FP) PO SCH (09:52)
[2019-04-03] MEDS: PANTOPRAZOLE 40 MG TABLET PO SCH (09:52)
[2019-04-03] MEDS: APIXABAN 2.5 MG TABLET PO SCH (09:52)
[2019-04-03 09:53] VITALS: PULSE 98
== END 2019-04-03 11:50 | DRG 309 ==
LOC: JER 15:06 → JERBED 18:50 → J4W 22:35
PROVIDERS: ADMIT Family Medicine; ATTEND Family Medicine
DX: I48.91 Unspecified atrial fibrillation (principal); N39.0 Urinary tract infection, site not specified; D72.829 Elevated white blood cell count, unspecified; G20 Parkinson's disease; F02.80 Dementia in other diseases classified elsewhere, unspecified severity, without behavioral disturbance, psychotic disturbance, mood disturbance, and anxiety; R00.0 Tachycardia, unspecified; R91.1 Solitary pulmonary nodule; I11.0 Hypertensive heart disease with heart failure; I50.9 Heart failure, unspecified; R79.89 Other specified abnormal findings of blood chemistry; K21.9 Gastro-esophageal reflux disease without esophagitis; E05.90 Thyrotoxicosis, unspecified without thyrotoxic crisis or storm
CPT/HCPCS: 36415; 71045-TC-FY; 71250-TC; 74176-TC; 80053; 80162; 81003; 83605; 83735; 83880; 84100; 84439; 84443; 84480; 84481; 84484; 85025; 85610; 87040; 87086; 93005; 93010; 99285-25

== ENCOUNTER 2020-07-24 18:19 | Inpatient (IN) | payer OTHER ==
[2020-07-24 18:51] VITALS: BMI 24.0
[2020-07-24] MEDS ORDERED: LACTATED RINGERS SOLUTION 1000 ML INFUS.BAG IV ONE (19:26)
[2020-07-24] MEDS ORDERED: ACETAMINOPHEN 1000 MG/100 ML VIAL (NON FORMULARY) IVPB ONE (19:30)
[2020-07-24] MEDS ORDERED: ACETAMINOPHEN INJECTION 100 ML IVPB ONE (20:07)
[2020-07-24 20:08] LABS: BASO % 1.1 % (0-2.0); EOS % 2.5 % (0-4.5); HEMATOCRIT 36.4 % (32.4-45.2); HEMOGLOBIN 12.1 GM/dL (10.7-15.3); LYMPH % 17.4 % (8-40); MCH 30.3 pg (25.7-33.7); MCHC 33.2 g/dl (32.0-36.0); MEAN CELL VOLUME 91.2 fl (80-96); MEAN PLT VOLUME 9.1 fl (7.5-11.1); MONO % 8.1 % (3.8-10.2); NEUT % 70.9 % (42.8-82.8); PLATELET COUNT 355 10^3/uL (134-434); RDW 14.3 % (11.6-15.6); WHITE BLOOD COUNT 13.6 K/mm3 (4.0-10.0)
[2020-07-24 20:21] LABS: INR 1.25 (0.83-1.09)
[2020-07-24 20:23] LABS: ACTIVATED PTT 36.2 SECONDS (25.2-36.5)
[2020-07-24 20:25] LABS: CHLORIDE 108 mmol/L (98-107); SODIUM 140 mmol/L (136-145)
[2020-07-24 20:27] LABS: ANION GAP 5 MMOL/L (8-16); BLOOD UREA NITROGEN 23.6 mg/dL (7-18); CALCIUM 8.5 mg/dL (8.5-10.1); CO2 27 mmol/L (21-32)
[2020-07-24 20:28] LABS: ALBUMIN 2.8 g/dl (3.4-5.0); GLUCOSE,RANDOM 108 mg/dL (74-106)
[2020-07-24 20:31] LABS: CREATININE 0.7 mg/dL (0.55-1.3); SGOT/AST 26 U/L (15-37); SGPT/ALT 15 U/L (13-61)
[2020-07-24 20:32] LABS: BILIRUBIN,TOTAL 0.5 mg/dL (0.2-1); TOT PROT 6.7 g/dl (6.4-8.2)
[2020-07-24 20:33] LABS: ALK PHOS 158 U/L (45-117)
[2020-07-25] MEDS ORDERED: DEXTROSE 5%-NORMAL SALINE 1,000 ML IV SCH (00:15)
[2020-07-25] MEDS ORDERED: SUCRALFATE 1 GM TABLET (FP) PO SCH (06:00)
[2020-07-25] MEDS ORDERED: DIGOXIN 0.125 MG TABLET (FP) PO SCH (10:00)
[2020-07-25] MEDS ORDERED: FAMOTIDINE 20 MG TABLET PO SCH (10:00)
[2020-07-25] MEDS ORDERED: PT OWN MED DRAWER 7, Y5N ONE ×4 (10:44→21:09)
[2020-07-25] MEDS: SUCRALFATE 1 GM TABLET (FP) PO SCH ×3 (10:59→21:17)
[2020-07-25] MEDS: rOPINIRole HCL 1 MG TABLET (FP) PO SCH ×3 (11:00→21:17)
[2020-07-25] MEDS ORDERED: ACETAMINOPHEN 325 MG TABLET (FP) PO PRN (12:11)
[2020-07-25] MEDS ORDERED: METOPROLOL TARTRATE 50 MG TABLET (FP) PO SCH (12:15)
[2020-07-25] MEDS ORDERED: D5-NS + 20 MEQ KCL - 20 MEQ/1,000 ML INFUS.BAG IV SCH (12:15)
[2020-07-25] MEDS: HEPARIN NA (PORCINE) 5,000 UNITS/ML 1ML VIAL SQ SCH ×2 (14:42→21:17)
[2020-07-25] MEDS ORDERED: METOPROLOL TARTRATE 25 MG TABLET (FP) PO SCH (22:00)
[2020-07-25] MEDS ORDERED: MIRTAZAPINE 15 MG TABLET (FP) PO SCH (22:00)
[2020-07-25 22:07] VITALS: BP 151/88; PULSE 70; TEMP 98.3
== END 2020-07-25 23:08 | DRG 536 ==
LOC: JER 18:19 → JERBED 19:26 → J6S 07-25 03:01
PROVIDERS: ADMIT Hospitalist; ATTEND Family Medicine
DX: S72.012A Unspecified intracapsular fracture of left femur, initial encounter for closed fracture (principal); R64 Cachexia; Z68.1 Body mass index [BMI] 19.9 or less, adult; I48.20 Chronic atrial fibrillation, unspecified; G20 Parkinson's disease; F02.80 Dementia in other diseases classified elsewhere, unspecified severity, without behavioral disturbance, psychotic disturbance, mood disturbance, and anxiety; G40.909 Epilepsy, unspecified, not intractable, without status epilepticus; I11.0 Hypertensive heart disease with heart failure; I50.9 Heart failure, unspecified; I95.9 Hypotension, unspecified; D72.829 Elevated white blood cell count, unspecified; Z79.01 Long term (current) use of anticoagulants; X58.XXXA Exposure to other specified factors, initial encounter; Y93.89 Activity, other specified; Y92.129 Unspecified place in nursing home as the place of occurrence of the external cause; Y99.8 Other external cause status
CPT/HCPCS: 36415; 70450-TC; 71045-TC-FY; 72125-TC; 73523-TC-FY; 73552-TC-LT-FY; 74176-TC; 80053; 84484; 85025; 85610; 85730; 86850; 86900; 86901; 93005; 93010; 99285-25; C9803; J0131; J1644; U0003; U0005

== ENCOUNTER 2022-06-27 23:46 | Emergency (ER) | payer OTHER ==
[2022-06-28 00:06] VITALS: BP 154/79; PULSE 77; RESP 16; TEMP 98; BMI 17.0
== END 2022-06-28 01:51 ==
LOC: JER 23:46
DX: R06.03 Acute respiratory distress (principal); R40.20 Unspecified coma; R09.02 Hypoxemia
CPT/HCPCS: 82962; 99282-25